=== PATIENT | female | born 1940 | race Caucasian/White ===

== ENCOUNTER 2019-04-28 10:57 | Outpatient (CLI) | payer MEDICARE, BC ==
--- NOTE | 2019-04-28 13:19 | BD ---
BONE DENSITOMETRY USING DEXA: Date: 04/28/2019 HISTORY: Postmenopausal screening for osteoporosis. FINDINGS: Lumbar Spine: BMD (g/cm2) L1 1.145 T-Score: 1.4 Z-Score: 3.7 L2 1.283 T-Score: 2.3 Z-Score: 4.8 L3 1.072 T-Score: -0.1 Z-Score: 2.5 L4 1.046 T-Score: -0.1 Z-Score: 2.6 L1-L4 1.129 T-Score: 0.7 Z-Score: 3.3 Femoral Neck: 0.600 T-Score: -2.2 Z-Score: 0.0 Total Femur: 0.763 T-Score: -1.5 Z-Score: 0.5 The 10 year fracture risk for a major osteoporotic fracture is 15% and for a hip fracture is 4.4%. IMPRESSION: Osteopenia. POS: [facility]
--- NOTE | 2019-04-28 14:18 | MMO ---
Bilateral MAMMO Bilat Screen [facility]. CLINICAL HISTORY: Patient is 78 years old and is seen for screening. The patient has the following family history of breast cancer: sister, malignant (generic). The patient has no personal history of cancer. VIEWS: The views performed were: bilateral craniocaudal with tomosynthesis and bilateral mediolateral oblique with tomosynthesis. FILMS COMPARED: The present examination has been compared to a prior imaging study performed at [facility] on 11/10/2011. This study has been interpreted with the assistance of computer-aided detection. MAMMOGRAM FINDINGS: The breasts are almost entirely fat. There are no suspicious masses, suspicious calcifications, or new areas of architectural distortion. IMPRESSION: THERE IS NO MAMMOGRAPHIC EVIDENCE OF MALIGNANCY. A ROUTINE FOLLOW-UP MAMMOGRAM IN 1 YEAR IS RECOMMENDED. THE RESULTS OF THIS EXAM WERE SENT TO THE PATIENT. ACR BI-RADS Category 1 - Negative MAMMOGRAPHY NOTE: 1. A negative mammogram report should not delay a biopsy if a dominant of clinically suspicious mass is present. 2. Approximately 10% to 15% of breast cancers are not detected by mammography. 3. Adenosis and dense breasts may obscure an underlying neoplasm. Reported by: LINETTE BARRAGAN MD Electonically Signed: [id number]
== END 2019-04-28 10:58 | disposition home or self-care (01) ==
LOC: BICMAMMO 10:57
PROVIDERS: ATTEND Family Medicine
DX: Z12.31 Encounter for screening mammogram for malignant neoplasm of breast (principal); M85.859 Other specified disorders of bone density and structure, unspecified thigh; Z78.0 Asymptomatic menopausal state; Z80.3 Family history of malignant neoplasm of breast
CPT/HCPCS: 77063; 77067; 77080

== ENCOUNTER 2023-06-14 12:48 | Outpatient (CLI) | payer MEDICARE | END 2023-06-14 12:49 | disposition home or self-care (01) | LOC: ULT 12:48 | PROVIDERS: ATTEND Family Medicine | DX: M79.604 Pain in right leg (principal); M79.605 Pain in left leg; I77.819 Aortic ectasia, unspecified site; R10.2 Pelvic and perineal pain; R79.1 Abnormal coagulation profile | CPT/HCPCS: 76999; 93970 ==

== ENCOUNTER 2023-06-29 10:22 | Outpatient (CLI) | payer MEDICARE | END 2023-06-29 10:23 | disposition home or self-care (01) | LOC: ULT 10:22 | PROVIDERS: ATTEND Family Medicine | DX: R10.2 Pelvic and perineal pain (principal); R10.32 Left lower quadrant pain; K80.20 Calculus of gallbladder without cholecystitis without obstruction; I71.40 Abdominal aortic aneurysm, without rupture, unspecified | CPT/HCPCS: 76700; 76856 ==

== ENCOUNTER 2024-12-03 07:26 | Outpatient (CLI) | payer MEDICARE ==
[2024-12-03] MEDS ORDERED: Iopamidol 370 76% 100 ML VIAL ONE (11:15)
== END 2024-12-03 07:27 | disposition home or self-care (01) ==
LOC: CT 07:26
PROVIDERS: ATTEND Internal Medicine
DX: R10.32 Left lower quadrant pain (principal); K44.9 Diaphragmatic hernia without obstruction or gangrene; K80.20 Calculus of gallbladder without cholecystitis without obstruction; D35.02 Benign neoplasm of left adrenal gland
CPT/HCPCS: 74178; Q9967

== ENCOUNTER 2025-02-12 08:40 | Outpatient (CLI) | payer MEDICARE | END 2025-02-12 08:41 | disposition home or self-care (01) | LOC: CT 08:40 | PROVIDERS: ATTEND Urology | DX: R93.7 Abnormal findings on diagnostic imaging of other parts of musculoskeletal system (principal); M48.02 Spinal stenosis, cervical region | CPT/HCPCS: 72125 ==